=== PATIENT | male | born 1960 | race Caucasian/White ===

== ENCOUNTER 2024-12-16 23:34 | Emergency (ER) | payer OTHER, SELFPAY ==
[2024-12-16 23:38] VITALS: BP 194/120
[2024-12-17] VITALS (18 sets, daily range): BP systolic 129–165; BP diastolic 82–100; BMI 26.5
--- NOTE | 2024-12-17 02:23 | ED.GENMED ---
History of Present Illness
General
Chief Complaint: Fall
Source: patient
Exam Limitations: none
Time Seen by Provider: 12/17/24 01:00
Nursing documentation reviewed up to this point in time: agreed with
History of Present Illness
History of Present Illness:
Patient presents to ED for evaluation secondary to persistent left shoulder pain, after he fell from second floor bar, down to sheep pen, where he landed on straws and sheep manure. Patient denies any other injuries from the fall. Denies headache.
Denies neck pain. Denies dizziness. Denies chest pain. Denies shortness of breath. Denies back pain. Denies nausea or vomiting. Patient was able to ambulate since incident. Accident occurred over 16 hours ago. Per brother at bedside, there
has not been any mental status change, and he has been behaving normally.
Review of Systems
Review of Systems
Allergies reviewed?: Yes
All Other Systems: ROS reviewed and negative except as documented in HPI and ROS
Constitutional: Reports no symptoms; Denies fever
Respiratory: Reports no symptoms; Denies trouble breathing
Cardiac: Reports no symptoms; Denies chest pain
ABD/GI: Reports no symptoms; Denies nausea or vomiting
: Reports no symptoms
Musculoskeletal: Reports other (Shoulder pain)
Skin: Reports no symptoms
Neurological: Reports no symptoms; Denies dizzy, headache or weakness
Phy Exam
Physical Exam
Physical Exam:
Physical Exam
General: mild painful distress, not acutely ill. afebrile
Head: nc/at. eomi
Neck: supple. normal range of motion.
Heart: s1/s2 regular rate and rhythm, no murmur.
Lungs: no acute respiratory distress. clear bilaterally. chest wall nontender to palpation.
Abdomen: normal bowel sounds. not tender.
Neuro: alert and oriented x 3. no focal neurological deficits
Skin: no rash
Psychiatric: well kept. interactive and cooperative
Extremities: left shoulder tender to palpation with soft tissue defect. clavicle nontender to palpation.
Course
Orders/Labs/Results
Orders:
Orders
12/16/24 23:42
Humerus, Left 2 Views [CR Humerus - Left Min 2 Views*] Urgent
Comment:
Reason For Exam: FALL
12/16/24 23:49
Shoulder, Left, Trauma CR [CR Shoulder, Trauma - Left] Urgent
Comment:
Reason For Exam: fall
12/17/24 01:30
Propofol [Diprivan] 20 ml .ROUTE .STK-MED
12/17/24 02:03
CR Shoulder - Left 1 View Urgent
Comment:
Reason For Exam: post reduction
Vital Signs
Initial and Last Documented VS:
Initial Vital Signs
Temp Pulse Resp BP Pulse Ox
98.2 F 86 22 194/120 98
12/16/24 23:38 12/16/24 23:38 12/16/24 23:38 12/16/24 23:38 12/16/24 23:38
Last Documented Vital Signs
Temp Pulse Resp BP Pulse Ox
98.8 F 63 11 156/88 96
12/17/24 02:35 12/17/24 03:22 12/17/24 03:22 12/17/24 03:22 12/17/24 03:15
Procedures
Moderate Sedation
ASA Risk Score: Class I
Chart and allergies reviewed: Yes
Consent for anesthesia obtained: Yes
Time out completed (validating right patient & procedure): Yes
Moderate Sedation Start Time(when first medication is given): 01:54
History of difficult intubation: No
Airway free of obstruction: Yes
Patient has a gag reflex: Yes
Patient is able to open mouth: Yes
Patient has no dentures: Yes
Patient has no loose teeth: Yes
Medication administered by Provider during Moderate Sedation: IV Propofol (mg)
Total dose administered: 30
Time drug administered: 01:54
Moderate Sedation Procedure End Time: 02:04
Joint/Fracture Reduction
Left Shoulder:
Indication for procedure:: shoulder dislocation
Procedure completed by: Freddy Khanna M.D.
Consent form signed: Yes
Joint reduced: without anesthesia
Anesthesia/sedation: Moderate sedation
Injury was: closed
Further treatement: no treatment needed
Post reduction exam: stable
Capillary Refill: normal
MDM/Problems Addressed
MDM/Problems Addressed:
History, exam, and x-ray consistent with shoulder dislocation.
Procedure consent on the chart.
After propofol administration, external rotation applied with successful reduction, confirmed via shoulder x-ray.
Patient is alert, awake, and oriented, without any other complaints, at time of discharge, to the care of his brother. Patient will follow-up with his orthopedic surgeon for an outpatient consultation. Patient placed on arm sling prior to
discharge.
*Critical Care Note
Total Time (30-74mins, 75-104mins- exclusive of procedures): 30 min
ED Attending Note
-
Portions of this chart may have been created with voice recognition software.� Occasional wrong word or��sound alike� substitutions may have occurred due to the inherent limitations of voice recognition software.
Discharge Plan
Departure
Patient Disposition: Home (Routine Discharge)
Date of Disposition: 12/17/24
Time of Disposition: 02:55
Patient with high blood pressure during this ER visit?: Yes
Condition: Good
Discharge Problem:
Dislocation of shoulder
Instructions: Shoulder Dislocation (DC), Procedural Sedation, Adult ED
Referrals:
Daniel De La Cruz MD [Family Provider] -
Fazal Villavicencio MD [Active] -
Activity Restrictions/Additional Instructions:
As discussed, please follow-up with your primary care physician and/or referred orthopedic surgeon with any further concerns.
Interventions
Interventions:
*Risk Screen - Suicide Last Done: 12/16/24 23:38
*General Assessment Last Done: 12/17/24 00:07
*Neglect/Abuse Screening Last Done: 12/16/24 23:38
ED- Fall Risk Assessment Last Done: 12/17/24 00:07
*ED COVID-19 Vaccine History Last Done: 12/17/24 00:07
*Nursing Disposition Last Done: 12/17/24 03:37
ED-Musculoskeletal Assessment Last Done: 12/17/24 00:07
ED- Neurological Assessment Last Done: 12/17/24 00:07
ED-Skin Assessment Last Done: 12/17/24 00:07
Discharge Date and Time
Discharge Date/Time: 12/17/24 03:40
Print Language: SWISS
== END 2024-12-17 03:40 | disposition home or self-care (01) ==
LOC: EMR 23:34
PROVIDERS: EMERGENCY PHYSICIAN Emergency Medicine; FAMILY PHYSICIAN Family Medicine
DX: S43.005A Unspecified dislocation of left shoulder joint, initial encounter (principal); W17.89XA Other fall from one level to another, initial encounter
CPT/HCPCS: 23650; 99152; 99285; 73020; 73030; 73060

== ENCOUNTER → 2024-12-23 13:24 | Outpatient (REF) | payer MEDICARE, SELFPAY | LOC: RAD 13:24 | PROVIDERS: ATTENDING PHYSICIAN Physician Assistant; OTHER PHYSICIAN Physician Assistant Medical; PRIMARYCARE PHYSICIAN Family Medicine | DX: Z77.018 Contact with and (suspected) exposure to other hazardous metals (principal) | CPT/HCPCS: 70030 ==

== ENCOUNTER → 2024-12-24 06:49 | Outpatient (REF) | payer MEDICARE, SELFPAY | LOC: PAVMRI 06:49 | PROVIDERS: ATTENDING PHYSICIAN Physician Assistant Medical; FAMILY PHYSICIAN Family Medicine | DX: M25.512 Pain in left shoulder (principal) | CPT/HCPCS: 73221 ==

== ENCOUNTER 2025-01-15 06:17 | Day surgery (SDC) | payer MEDICARE, OTHER, SELFPAY ==
[2025-01-09 09:19] LABS: Hematocrit 41.3 % (39.0-52.0); Hemoglobin 13.6 g/dL (13.0-18.0); Mean Corp Hgb Conc. 32.9 g/dL (33.0-37.0); Mean Corpuscular Hgb 29.9 pg (27.0-31.0); Mean Corpuscular Volume 90.8 fL (80.0-94.0); Platelet Count 241 10^3/uL (130-400); Red Blood Cell Count 4.55 10^6/uL (4.70-6.10); Red Cell Dist. Width 13.3 % (11.5-14.5); White Blood Cell Count 9.8 10^3/uL (4.8-10.8)
[2025-01-09 09:57] LABS: ALT (SGPT) 20 U/L (0-50); AST (SGOT) 22 U/L (17-59); Albumin 4.3 g/dl (3.5-5.0); Alkaline Phosphatase 71 U/L (38-126); Blood Urea Nitrogen 33 mg/dl (9-20); Calcium 10.2 mg/dl (8.4-10.2); Carbon Dioxide 27 mmol/L (22-30); Chloride 103 mmol/L (98-107); Glucose 91 mg/dl (70-99); HDL Cholesterol 57 mg/dl; LDL Cholesterol, Calculated 131 mg/dl; Potassium 4.6 mmol/L (3.5-5.1); Sodium 137 mmol/L (135-145); Total Bilirubin 0.6 mg/dl (0.2-1.3); Total Cholesterol 222 mg/dl (50-199); Triglyceride 171 mg/dl (10-149); Very Low Density Lipoprotein 34 mg/dl (0-30); eGFR 38.66
[2025-01-09 10:09] LABS: Glycohemoglobin (HgbA1c) 5.8 % (4.0-5.6)
[2025-01-09 10:25] LABS: PSA, Total - Screen 2.86 ng/ml (0.0-4.0)
[2025-01-09 13:46] VITALS: BMI 25.5
[2025-01-15] VITALS (8 sets, daily range): BP systolic 131–152; BP diastolic 81–96; BMI 25.5
[2025-01-15] MEDS: TYLENOL 1000 MG PO (12:22)
[2025-01-15] MEDS: CELEBREX 200 MG PO (12:23)
[2025-01-15] MEDS: NORMOSOL-R/PLASMALYTE-A 1000 IV (12:50)
== END 2025-01-15 16:50 | disposition home or self-care (01) ==
LOC: SDS 06:17
PROVIDERS: ATTENDING PHYSICIAN Orthopaedic Surgery; FAMILY PHYSICIAN Physician Assistant
DX: S46.012A Strain of muscle(s) and tendon(s) of the rotator cuff of left shoulder, initial encounter (principal); X58.XXXA Exposure to other specified factors, initial encounter
CPT/HCPCS: 29827; 36415; 80053; 80061; 83036; 85027; 93005; G0103